=== PATIENT | female | born 1965 | race African-American/Black ===

== ENCOUNTER 2016-03-29 07:48 | Emergency (ER) | payer OTHER ==
[~2016-03-29] VITALS: Ht 160 cm; Wt 103.0 kg
[~2016-03-29 07:48] MED LIST: NAPROXEN500 MG PO; NOHOMEMEDS; PERCOCET 5/31 TABLET PO
[2016-03-29] MEDS ORDERED: GLUCOPHAGE XR750 MG PO (07:59)
[2016-03-29] MEDS ORDERED: PERCOCET 5/31 TABLET PO (13:14)
[2016-03-29 13:55] VITALS: BP 146/74
== END 2016-03-29 13:56 | disposition home or self-care (01) ==
LOC: EME → TRA 07:48 → EDBD 07:48 → TRA 13:56
DX: S80.12XA Contusion of left lower leg, initial encounter (principal); S80.212A Abrasion, left knee, initial encounter; R10.9 Unspecified abdominal pain; M79.602 Pain in left arm; M25.521 Pain in right elbow; V03.90XA Pedestrian on foot injured in collision with car, pick-up truck or van, unspecified whether traffic or nontraffic accident, initial encounter; Y92.481 Parking lot as the place of occurrence of the external cause; E11.9 Type 2 diabetes mellitus without complications
CPT/HCPCS: 73080; 73502; 73564; 99281; 99284

== ENCOUNTER → 2016-04-01 | Outpatient (CLI) | payer OTHER ==
[~2016-04-01] MED LIST changes: +GLUCOPHAGE XR750 MG PO
== END | disposition home or self-care (01) ==
LOC: RAD 10:38
DX: M25.532 Pain in left wrist (principal)
CPT/HCPCS: 73110

== ENCOUNTER 2016-12-24 16:20 | Emergency (ER) | payer OTHER ==
[~2016-12-24] VITALS: Ht 160 cm; Wt 102.3 kg
[2016-12-24 17:15] LABS: EOSINOPHIL (%) 2.4 % (0-5); EOSINOPHIL COUNT 0.1 K/uL (0-0.3); HEMATOCRIT 39.5 % (36.0-46.0); IMMATURE GRANULOCYTE (%) 0.2 % (0.0-0.7); INSTRUMENT ABS NEUTROPHIL CT 1.4 K/uL; LYMPHOCYTE COUNT 2.2 K/uL (1.0-2.8); MCH 29.1 PG (29.0-34.0); MCHC 32.4 G/DL (30.0-36.0); MCV 89.8 FL (83-99); MEAN PLAT.VOLUME 10.5 uM^3 (9.5-12.4); MONOCYTE COUNT 0.4 K/uL (0-0.8); NEUTROPHIL (%) 35.3 % (45-76); NEUTROPHIL COUNT 1.4 K/uL (1.8-6.4); PLATELET COUNT 207 K/uL (156-360); RBC DIS.WIDTH-CV 12.7 % (11.8-14.6); WHITE BLOOD COUNT 4.1 K/uL (4.1-10.2)
[2016-12-24 17:24] LABS: CHLORIDE 108 mEq/L (99-109); POTASSIUM 3.8 mEq/L (3.7-5.4); SODIUM 142 mEq/L (136-147)
[2016-12-24 17:26] LABS: GLUCOSE 105 mg/dL (70-99)
[2016-12-24 17:27] LABS: ANION GAP 9 MEQ/L (2-14)
[2016-12-24 17:30] LABS: GFR ESTIMATE (CALCULATED) > 59 mL/min/; UREA NITROGEN (BUN) 9 mg/dL (9-23)
[2016-12-24 18:05] LABS: TROP-I INTERPRETATION NEGATIVE; TROPONIN-I < 0.01 ng/mL (0.0-0.30)
[2016-12-24] MEDS ORDERED: FIORICET WI1 CAPSULE PO (20:36)
[2016-12-24] MEDS ORDERED: ANTIVERT25 MG PO (20:36)
[2016-12-24 21:19] VITALS: BP 124/74
== END 2016-12-24 21:20 | disposition home or self-care (01) ==
LOC: EME 16:20
PROVIDERS: Emergency Medicine
DX: R51 Headache (principal); R42 Dizziness and giddiness; E11.9 Type 2 diabetes mellitus without complications; Z79.84 Long term (current) use of oral hypoglycemic drugs
CPT/HCPCS: 70450; 80048; 84484; 85025; 93005; 99281; 99285; J1885; J2405; J7030

== ENCOUNTER 2017-02-08 22:20 | Emergency (ER) | payer OTHER ==
[~2017-02-08] VITALS: Ht 160 cm; Wt 103.1 kg
[~2017-02-08 22:20] MED LIST changes: +ANTIVERT25 MG PO; +FIORICET WI1 CAPSULE PO
[2017-02-08 22:52] LABS: HEMATOCRIT 38.1 % (36.0-46.0); MCH 29.2 PG (29.0-34.0); MCHC 32.8 G/DL (30.0-36.0); MEAN PLAT.VOLUME 10.4 uM^3 (9.5-12.4); PLATELET COUNT 222 K/uL (156-360); RBC DIS.WIDTH-CV 12.5 % (11.8-14.6); RBC DIS.WIDTH-SD 40.5 % (39-53); RED BLOOD COUNT 4.28 M/uL (3.80-5.20); WHITE BLOOD COUNT 6.6 K/uL (4.1-10.2)
[2017-02-08 23:01] LABS: CHLORIDE 104 mEq/L (99-109)
[2017-02-08 23:03] LABS: GLUCOSE 164 mg/dL (70-99)
[2017-02-08 23:05] LABS: ANION GAP 7 MEQ/L (2-14)
[2017-02-08 23:07] LABS: GFR ESTIMATE (CALCULATED) > 59 mL/min/
[2017-02-08 23:08] LABS: UREA NITROGEN (BUN) 9 mg/dL (9-23)
[2017-02-08 23:11] LABS: TROP-I INTERPRETATION NEGATIVE; TROPONIN-I < 0.01 ng/mL (0.0-0.30)
[2017-02-08 23:23] LABS: SODIUM 136 mEq/L (136-147)
[2017-02-09] MEDS ORDERED: LEVAQUIN750 MG PO (00:47)
[2017-02-09] MEDS ORDERED: NORCO 5/3251 TABLET PO (00:56)
[2017-02-09 01:38] VITALS: BP 175/100
== END 2017-02-09 01:39 | disposition home or self-care (01) ==
LOC: EME 22:20
PROVIDERS: Emergency Medicine
DX: J18.9 Pneumonia, unspecified organism (principal); R07.9 Chest pain, unspecified; E11.9 Type 2 diabetes mellitus without complications; Z79.84 Long term (current) use of oral hypoglycemic drugs; E78.5 Hyperlipidemia, unspecified; Z88.2 Allergy status to sulfonamides
CPT/HCPCS: 71020; 71275; 80048; 84484; 85027; 85379; 93005; 99281; 99285; J1885; J2270; J7030

== ENCOUNTER 2017-02-12 12:44 | Inpatient (IN) | payer OTHER ==
[~2017-02-12] VITALS: Ht 160 cm; Wt 105.0 kg
[~2017-02-12 12:44] MED LIST changes: +LEVAQUIN750 MG PO; +NORCO 5/3251 TABLET PO
[2017-02-12 13:23] LABS: HEMATOCRIT 39.3 % (36.0-46.0); MCH 29.3 PG (29.0-34.0); MCHC 32.6 G/DL (30.0-36.0); MCV 89.9 FL (83-99); MEAN PLAT.VOLUME 10.6 uM^3 (9.5-12.4); PLATELET COUNT 217 K/uL (156-360); RBC DIS.WIDTH-CV 12.3 % (11.8-14.6); RBC DIS.WIDTH-SD 40.7 % (39-53); RED BLOOD COUNT 4.37 M/uL (3.80-5.20); WHITE BLOOD COUNT 5.8 K/uL (4.1-10.2)
[2017-02-12 13:33] LABS: CHLORIDE 106 mEq/L (99-109); POTASSIUM 3.8 mEq/L (3.7-5.4); SODIUM 137 mEq/L (136-147)
[2017-02-12 13:34] LABS: GLUCOSE 147 mg/dL (70-99)
[2017-02-12 13:36] LABS: ANION GAP 7 MEQ/L (2-14)
[2017-02-12 13:38] LABS: GFR ESTIMATE (CALCULATED) > 59 mL/min/
[2017-02-12 13:39] LABS: UREA NITROGEN (BUN) 10 mg/dL (9-23)
[2017-02-12 13:43] LABS: TROP-I INTERPRETATION NEGATIVE; TROPONIN-I < 0.01 ng/mL (0.0-0.30)
[2017-02-12] MEDS ORDERED: ADVAIR HFA120 INHALA IH (16:38)
[2017-02-12] MEDS ORDERED: FLUTICASONE PRO16 GM BOTH NARES (16:40)
[2017-02-12] MEDS ORDERED: VENTOLIN HFA18 GM IH (16:45)
[2017-02-12] MEDS ORDERED: IBUPROFEN800 MG PO (16:48)
[2017-02-12] MEDS ORDERED: HYDROCODON-ACE1 EAC7 PO (16:50)
[2017-02-12 17:08] VITALS: BP 143/81
[2017-02-12 17:30] LABS: POINT-OF-CARE METER ID UU13113700
[2017-02-12 19:20] VITALS: BP 141/87
[2017-02-13] VITALS (7 sets, daily range): BP systolic 127–174; BP diastolic 63–94
[2017-02-13 05:30] LABS: EOSINOPHIL (%) 2.2 % (0-5); EOSINOPHIL COUNT 0.1 K/uL (0-0.3); HEMATOCRIT 35.2 % (36.0-46.0); IMMATURE GRANULOCYTE (%) 0.2 % (0.0-0.7); INSTRUMENT ABS NEUTROPHIL CT 3.3 K/uL; LYMPHOCYTE COUNT 1.4 K/uL (1.0-2.8); MCH 28.8 PG (29.0-34.0); MCHC 31.8 G/DL (30.0-36.0); MCV 90.5 FL (83-99); MEAN PLAT.VOLUME 10.7 uM^3 (9.5-12.4); MONOCYTE COUNT 0.7 K/uL (0-0.8); NEUTROPHIL (%) 60.2 % (45-76); NEUTROPHIL COUNT 3.3 K/uL (1.8-6.4); PLATELET COUNT 205 K/uL (156-360); RBC DIS.WIDTH-CV 12.4 % (11.8-14.6); RBC DIS.WIDTH-SD 41.3 % (39-53); RED BLOOD COUNT 3.89 M/uL (3.80-5.20); WHITE BLOOD COUNT 5.4 K/uL (4.1-10.2)
[2017-02-13 05:49] LABS: ANION GAP 6 MEQ/L (2-14); CHLORIDE 107 MEQ/L (99-109); GFR ESTIMATE (CALCULATED) > 59 mL/min/; GLUCOSE 132 mg/dL (70-99); POTASSIUM 4.1 MEQ/L (3.7-5.4); SAMPLE HEMOLYSIS CHECK 0; SAMPLE ICTERIC CHECK 0; SAMPLE LIPEMIA CHECK 0; SODIUM 140 MEQ/L (136-147); UREA NITROGEN (BUN) 10 mg/dL (9-23)
[2017-02-13 10:23] LABS: INTERNAL CONTROL VALID? YES
[2017-02-13 12:41] LABS: POINT-OF-CARE METER ID UU13113831
[2017-02-13 18:24] LABS: POINT-OF-CARE METER ID UU14162513
[2017-02-13 21:29] LABS: POINT-OF-CARE METER ID UU14162513
[2017-02-14] VITALS (7 sets, daily range): BP systolic 112–171; BP diastolic 73–87
[2017-02-14 08:45] LABS: HEMATOCRIT 32.9 % (36.0-46.0); MCH 29.4 PG (29.0-34.0); MCHC 32.5 G/DL (30.0-36.0); MCV 90.4 FL (83-99); MEAN PLAT.VOLUME 10.2 uM^3 (9.5-12.4); PLATELET COUNT 188 K/uL (156-360); RBC DIS.WIDTH-CV 12.5 % (11.8-14.6); RBC DIS.WIDTH-SD 41.4 % (39-53); RED BLOOD COUNT 3.64 M/uL (3.80-5.20); WHITE BLOOD COUNT 5.9 K/uL (4.1-10.2)
[2017-02-14 09:08] LABS: ANION GAP 5 MEQ/L (2-14); CHLORIDE 103 MEQ/L (99-109); POTASSIUM 3.7 MEQ/L (3.7-5.4); SAMPLE HEMOLYSIS CHECK 0; SAMPLE ICTERIC CHECK 0; SAMPLE LIPEMIA CHECK 0; SODIUM 137 MEQ/L (136-147)
[2017-02-14 09:13] LABS: GFR ESTIMATE (CALCULATED) > 59 mL/min/; GLUCOSE 109 mg/dL (70-99); UREA NITROGEN (BUN) 6 mg/dL (9-23)
[2017-02-14 20:40] LABS: C DIFF TOXIN NEGATIVE (NEGATIVE)
[2017-02-14 20:45] LABS: PROBE CHECK PASS; SPECIMEN PROCESSING CONTROL PASS
[2017-02-15] VITALS: BP 150/76
[2017-02-15 03:21] VITALS: BP 133/68
[2017-02-15 05:38] LABS: HEMATOCRIT 33.3 % (36.0-46.0); MCH 28.9 PG (29.0-34.0); MCHC 32.7 G/DL (30.0-36.0); MCV 88.3 FL (83-99); MEAN PLAT.VOLUME 10.3 uM^3 (9.5-12.4); PLATELET COUNT 216 K/uL (156-360); RBC DIS.WIDTH-CV 11.9 % (11.8-14.6); RBC DIS.WIDTH-SD 38.7 % (39-53); RED BLOOD COUNT 3.77 M/uL (3.80-5.20); WHITE BLOOD COUNT 9.4 K/uL (4.1-10.2)
[2017-02-15 06:04] LABS: ANION GAP 9 MEQ/L (2-14); CHLORIDE 104 MEQ/L (99-109); GFR ESTIMATE (CALCULATED) > 59 mL/min/; GLUCOSE 227 mg/dL (70-99); POTASSIUM 3.8 MEQ/L (3.7-5.4); SAMPLE HEMOLYSIS CHECK 0; SAMPLE ICTERIC CHECK 0; SAMPLE LIPEMIA CHECK 0; SODIUM 139 MEQ/L (136-147); UREA NITROGEN (BUN) 9 mg/dL (9-23)
[2017-02-15 08:00] VITALS: BP 164/75
[2017-02-15 11:59] VITALS: BP 172/78
[2017-02-15 19:50] VITALS: BP 166/86
[2017-02-15 21:30] LABS: POINT-OF-CARE METER ID UU14162513
[2017-02-15 23:44] VITALS: BP 148/83
[2017-02-16] VITALS (7 sets, daily range): BP systolic 122–184; BP diastolic 58–93
[2017-02-16 08:42] LABS: POINT-OF-CARE METER ID UU13113700
[2017-02-16 12:51] LABS: POINT-OF-CARE METER ID UU13113831
[2017-02-16 16:13] LABS: POINT-OF-CARE METER ID UU13113831
[2017-02-16 21:05] LABS: POINT-OF-CARE METER ID UU14162513
[2017-02-17 02:37] VITALS: BP 142/71
[2017-02-17 08:00] VITALS: BP 161/84
[2017-02-17 09:00] LABS: POINT-OF-CARE METER ID UU13113700
[2017-02-17 12:18] VITALS: BP 179/82
[2017-02-17 12:49] LABS: POINT-OF-CARE METER ID UU13113700
[2017-02-17 16:25] VITALS: BP 198/94
[2017-02-17 16:49] LABS: POINT-OF-CARE METER ID UU14162513
[2017-02-17 19:59] VITALS: BP 177/81
[2017-02-17 21:37] LABS: POINT-OF-CARE METER ID UU13113700
[2017-02-17 23:43] VITALS: BP 170/79
[2017-02-18 07:21] VITALS: BP 189/89
[2017-02-18 08:36] LABS: POINT-OF-CARE METER ID UU13113700
[2017-02-18] MEDS ORDERED: APRESOLINE10 MG PO (10:50)
[2017-02-18] MEDS ORDERED: FLORASTOR250 MG PO (10:50)
[2017-02-18] MEDS ORDERED: PREDNISONE10 MG PO (10:54)
[2017-02-18 11:53] VITALS: BP 196/94
[2017-02-18 12:22] LABS: POINT-OF-CARE METER ID UU13113700
== END 2017-02-18 13:53 | disposition home or self-care (01) | DRG 189 ==
LOC: EME 12:44 → ENRESERV 16:03 → EDOF 16:03 → 5WEST 16:03 → EDOF 16:03 → ENRESERV 16:22 → 5WEST 16:53 → CANRESERV 02-18 00:25 → ENRESERV 02-18 00:25 → 5WEST 02-18 13:53
PROVIDERS: Nurse Practitioner Adult Health; Student in an Organized Health Care Education/Training Program
DX: J96.01 Acute respiratory failure with hypoxia (principal); J18.9 Pneumonia, unspecified organism; J45.901 Unspecified asthma with (acute) exacerbation; K52.1 Toxic gastroenteritis and colitis; E11.9 Type 2 diabetes mellitus without complications; I10 Essential (primary) hypertension; E66.9 Obesity, unspecified; Z68.41 Body mass index [BMI] 40.0-44.9, adult; Z79.84 Long term (current) use of oral hypoglycemic drugs
CPT/HCPCS: 36415; 71010; 71020; 80048; 82565; 82948; 83036; 84484; 84520; 85025; 85027; 87040; 87070; 87205; 87449; 87493; 93005; 94640; 94640 76; 94760; 94799; 99202; 99281; 99285; G0378; J0295; J0360; J0456; J0696; J1650; J1815; J1885; J2920; J2930; J3010; J7030; J7050